=== PATIENT | male | born 2000 | race Caucasian/White ===

== ENCOUNTER 2021-12-07 21:12 | Emergency (ER) | payer SELFPAY ==
[2021-12-07] MEDS ORDERED: Ondansetron PF 4 MG/2 ML Vial ONE (21:47)
[2021-12-07] MEDS ORDERED: Ketorolac Tromethamine 30 MG/ML VIAL ONE (21:47)
[2021-12-07 22:23] LABS: #Basophils 0.1 10x3/uL (0.0-0.2); #Monocytes 0.8 10x3/uL (0.0-1.1); #Neutrophils 10.9 10x3/uL (1.5-8.4); %Basophils 0.4 % (0.0-2.0); %Eosinophils 0.1 % (0.0-6.0); %Lymphocytes 13.2 % (18.0-47.0); %Neutrophils 80.2 % (40.0-75.0); Hemoglobin 14.2 g/dL (13.5-17.5); Mean Corpuscular HGB CONC 35.3 g/dL (32.0-36.0); Mean Corpuscular Hemoglobin 29.9 pg (27.0-33.0); Mean Corpuscular Volume 84.6 fl (81.2-95.1); Mean Platelet Volume 10.2 fl (7.4-10.4); Platelet Count 321 10x3/uL (150-450); RBC Distribution Width 11.9 % (11.5-14.5); Red Blood Cell (RBC) Count 4.75 10x6/uL (4.32-5.72); White Blood Cell (WBC) Count 13.6 10x3/uL (3.5-10.5)
[2021-12-07 22:36] LABS: ALT (SGPT) 22 U/L (8-55); AST (SGOT) 29 U/L (5-34); Albumin 5.1 g/dL (3.5-5.0); Alkaline Phosphatase 65 U/L (50-130); Anion Gap 20 mmol/L (10-20); BUN (Urea Nitrogen) 26 mg/dL (8.9-20.6); Bilirubin, Total 0.9 mg/dL (0.2-1.2); Calc. Creatinine Clearance 0 mL/min (70-130); Calcium 10.4 mg/dL (7.8-10.44); Carbon Dioxide 23 mmol/L (22-29); Chloride 102 mmol/L (98-107); Estimated GFR 63; Globulin 3.1 g/dL (2.4-3.5); Glucose 89 mg/dL (70-105); Potassium 3.7 mmol/L (3.5-5.1); Protein, Total 8.2 g/dL (6.0-8.3); Sodium 141 mmol/L (136-145)
== END 2021-12-08 01:01 | disposition home or self-care (01) ==
LOC: CSHERS 21:12
DX: R11.2 Nausea with vomiting, unspecified (principal); R50.9 Fever, unspecified
CPT/HCPCS: 80053; 82550; 85025; 87804; 96361; 96374; 96375; J1885; J2405